=== PATIENT | female | born 1975 | race Caucasian/White ===

== ENCOUNTER → 2017-03-10 | Outpatient (REF) | payer OTHER | LOC: M LAB REF 16:28 | PROVIDERS: ATTEND Physician Assistant | DX: J02.9 Acute pharyngitis, unspecified (principal) ==

== ENCOUNTER 2024-02-19 16:33 | Emergency (ER) | payer OTHER ==
[~2024-02-19] VITALS: Ht 170.2 cm; Wt 80.5 kg
[2024-02-19] MEDS ORDERED: PSEU120T19 PO (19:19)
[2024-02-19 19:28] VITALS: BP 115/68; TEMP 97.9; O2SAT 98
== END 2024-02-19 19:29 | disposition home or self-care (01) ==
LOC: M ED 16:33
DX: R09.81 Nasal congestion (principal); H90.42 Sensorineural hearing loss, unilateral, left ear, with unrestricted hearing on the contralateral side; Z88.8 Allergy status to other drugs, medicaments and biological substances; Z79.899 Other long term (current) drug therapy